=== PATIENT | male | born 1980 | race Two or more races ===

== ENCOUNTER 2019-11-11 11:36 | Inpatient (IN) | payer MEDICAID, SELFPAY ==
[~2019-11-11] VITALS: Ht 175.3 cm; Wt 69.9 kg
[2019-11-11] MEDS ORDERED: NITROGLYCERIN 0.4MG TABLET SL SL ONE (11:45)
[2019-11-11] MEDS ORDERED: NITROGLYCERIN 50MG PREMIX 250 ML IV ONE (11:45)
[2019-11-11 12:26] LABS: BASOPHILS % 1.3 % (0.0-2.0); EOSINOPHILS % 4.3 % (0.0-5.0); HEMATOCRIT. 29.6 % (42.0-52.0); LYMPHOCYTES % 12.4 % (20.0-50.0); MEAN CORPUSCULAR HEMOGLOBIN 34.5 pg (28.0-32.0); MEAN CORPUSCULAR VOLUME 102.3 fL (80.0-94.0); MONOCYTES % 3.9 % (2.0-8.0); NEUTROPHILS % 78.1 % (40.0-76.0); PLATELET 479 x1000/uL (130-400); RED BLOOD CELL COUNT 2.89 mill/uL (4.7-6.1); RED CELL DISTRIBUTION WIDTH 13.9 % (11.6-14.6)
[2019-11-11 12:33] LABS: INR 1.1; PROTHROMBIN TIME 11.4 sec (9.6-11.0)
[2019-11-11 12:35] LABS: CHLORIDE 98 mEq/L (98-107)
[2019-11-11 12:40] LABS: BG BASE EXCESS -13.7 mmol/L (-2.0-2.0); BG BILEVEL POS AIRWAY PRESSURE ST=16/5; BG CARBOXYHEMOGLOBIN 0.3 % (0.5-1.5); BG DEOXYHEMOGLOBIN 1.5 % (0.0-5.0); BG FRACTION INSPIRED OXYGEN 70; BG HCO3 ACT 15.5 mmol/L (22.0-26.0); BG METHEMOGLOBIN 0.3 % (0.0-1.5); BG OXYGEN SATURATION 98.5 % (92.0-98.5); BG OXYHEMOGLOBIN 97.9 % (94.0-97.0); BG PCO2 51.3 mmHg (35.0-45.0); BG PH 7.098 (7.350-7.450); BG SAMPLE SITE RIGHT RADIAL; BG TOTAL HEMOGLOBIN 9.7 g/dL (12.0-18.0); BG VENT MODE MASK - BIPAP; BG VENT RATE 16 set
[2019-11-11] MEDS ORDERED: LIDOCAINE HCL 1% 20ML VIAL (Pyxis) INJ ONE ×2 (12:57→14:02)
[2019-11-11] MEDS ORDERED: DEXTROSE 50% WATER 50ML SYRINGE IV NR (13:00)
[2019-11-11] MEDS ORDERED: AZITHROMYCIN 500 MG in DEXT 5% WATER 250 ML IV SCH (13:00)
[2019-11-11] MEDS ORDERED: SODIUM BICARBONATE 8.4% 1 MEQ/ML 50ML SYR IV NR (13:00)
[2019-11-11] MEDS ORDERED: CALCIUM GLUCONATE 1,000 MG in DEXT 5% WATER 100 ML IV SCH (13:00)
[2019-11-11] MEDS ORDERED: CEFTRIAXONE 1 G PREMIX 50 ML IV SCH (13:00)
[2019-11-11] MEDS ORDERED: INSULIN REGULAR (HUMULIN R) 300UNITS/3ML IV NR (13:00)
[2019-11-11] MEDS ORDERED: MIDAZOLAM HCL 100 MG in DEXT 5% WATER 80 ML IV PRN (13:45)
[2019-11-11] MEDS ORDERED: FENTANYL CITRATE/PF 1,000 MCG in SODIUM CHLORIDE 0.9% 80 ML IV PRN (13:45)
[2019-11-11] MEDS ORDERED: ETOMIDATE 2MG/ML 10ML VIAL IV ONE ×2 (13:50→14:00)
[2019-11-11] MEDS ORDERED: VECURONIUM BROMIDE 10 MG/VIAL IV ONE ×2 (13:50→14:00)
[2019-11-11] MEDS ORDERED: DEXTROSE 50% WATER 50ML SYRINGE IV PRN (14:00)
[2019-11-11] MEDS ORDERED: PROPOFOL 10MG/ML 100ML 100 ML IV ONE (14:00)
[2019-11-11] MEDS ORDERED: SODIUM BICARBONATE 4% (2.4MEQ) 5ML VIAL IV ONE (14:02)
[2019-11-11 14:28] LABS: BG BASE EXCESS -13.1 mmol/L (-2.0-2.0); BG CARBOXYHEMOGLOBIN 0.3 % (0.5-1.5); BG DEOXYHEMOGLOBIN 9.3 % (0.0-5.0); BG FRACTION INSPIRED OXYGEN 60; BG HCO3 ACT 17.4 mmol/L (22.0-26.0); BG METHEMOGLOBIN 0.2 % (0.0-1.5); BG OXYGEN SATURATION 90.7 % (92.0-98.5); BG OXYHEMOGLOBIN 90.2 % (94.0-97.0); BG PCO2 65.2 mmHg (35.0-45.0); BG PH 7.044 (7.350-7.450); BG PO2 88.4 mmHg (75.0-100.0); BG SAMPLE SITE RIGHT RADIAL; BG TIDAL VOLUME(mL) 400 mL; BG TOTAL HEMOGLOBIN 10.1 g/dL (12.0-18.0); BG VENT MODE VENT - A/C; BG VENT RATE 16 set
[2019-11-11] MEDS ORDERED: VANCOMYCIN 2,000 MG in DEXT 5% WATER 500 ML IV SCH (16:00)
[2019-11-11] MEDS: DEXAMETHASONE 10 MG/ML VIAL IV SCH (16:19)
[2019-11-11] MEDS: PIPERACILLIN/TAZOBACTAM 2.25 G in DEXTROSE 5% WATER 50 ML IV SCH ×2 (16:33→23:50)
[2019-11-11] MEDS: BLOOD SUGAR DIAGNOSTIC STRIP TEST SCH ×2 (17:20→21:39)
[2019-11-11] MEDS ORDERED: PIPERACILLIN/TAZOBACTAM 3.375 G in DEXTROSE 5% WATER 50 ML IV SCH (18:00)
[2019-11-11] MEDS: INSULIN LISPRO 100 UNITS/ML SUBCUT SCH ×2 (18:20→21:00)
[2019-11-11] MEDS ORDERED: ENOXAPARIN 80MG/0.8ML SYR SUBCUT SCH (18:30)
[2019-11-11] MEDS ORDERED: HEPARIN 5000 UNITS/ML VIAL SUBCUT SCH (21:00)
[2019-11-12] VITALS (48 sets, daily range): BP systolic 114–186; BP diastolic 48–114
[2019-11-12] MEDS: NITROGLYCERIN 50MG PREMIX 250ML IV PRN ×3 (00:18→22:05)
[2019-11-12] MEDS: PIPERACILLIN/TAZOBACTAM 2.25 G in DEXTROSE 5% WATER 50 ML IV SCH ×3 (06:00→22:05)
[2019-11-12 06:25] LABS: HEMATOCRIT. 22.4 % (42.0-52.0); HEMOGLOBIN. 7.5 g/dL (14.0-18.0); MEAN CORPUSCULAR HEMOGLOBIN 33.5 pg (28.0-32.0); MEAN CORPUSCULAR VOLUME 100.5 fL (80.0-94.0); PLATELET 304 x1000/uL (130-400); RED BLOOD CELL COUNT 2.23 mill/uL (4.7-6.1); RED CELL DISTRIBUTION WIDTH 13.5 % (11.6-14.6)
[2019-11-12 06:29] LABS: CHLORIDE 95 mEq/L (98-107)
[2019-11-12] MEDS: BLOOD SUGAR DIAGNOSTIC STRIP TEST SCH ×5 (06:30→23:30)
[2019-11-12] MEDS ORDERED: SODIUM BICARBONATE 8.4% 1 MEQ/ML 50ML SYR IV STA (06:56)
[2019-11-12] MEDS ORDERED: SODIUM POLYSTYRENE SULFONATE 15 G/60 ML BOT PO STA (06:56)
[2019-11-12] MEDS ORDERED: INSULIN REGULAR (HUMULIN R) 300UNITS/3ML IV STA (06:56)
[2019-11-12] MEDS ORDERED: DEXTROSE 50% WATER 50ML SYRINGE IV STA (06:56)
[2019-11-12] MEDS: INSULIN LISPRO 100 UNITS/ML SUBCUT SCH ×4 (07:00→17:17)
[2019-11-12 07:11] LABS: PLATELET ESTIMATE NORMAL
[2019-11-12] MEDS ORDERED: CALCIUM GLUCONATE 1,000 MG in DEXT 5% WATER 90 ML IV SCH (08:00)
[2019-11-12] MEDS ORDERED: SODIUM BICARBONATE 8.4% 1 MEQ/ML 50ML SYR IV NR (08:45)
[2019-11-12 08:47] LABS: BG BASE EXCESS -9.6 mmol/L (-2.0-2.0); BG CARBOXYHEMOGLOBIN 0.3 % (0.5-1.5); BG DEOXYHEMOGLOBIN 0.6 % (0.0-5.0); BG FRACTION INSPIRED OXYGEN 80; BG HCO3 ACT 17.2 mmol/L (22.0-26.0); BG METHEMOGLOBIN 0.3 % (0.0-1.5); BG OXYGEN SATURATION 99.4 % (92.0-98.5); BG OXYHEMOGLOBIN 98.8 % (94.0-97.0); BG PCO2 42.1 mmHg (35.0-45.0); BG PH 7.229 (7.350-7.450); BG PO2 299.2 mmHg (75.0-100.0); BG SAMPLE SITE RIGHT RADIAL; BG TIDAL VOLUME(mL) 500 mL; BG TOTAL HEMOGLOBIN 7.5 g/dL (12.0-18.0); BG VENT MODE VENT- PRVC; BG VENT RATE 20 set
[2019-11-12] MEDS: IPRATROPIUM/ALBUTEROL 0.5-3(2.5)MG/3ML NEB HHN SCH ×3 (09:00→20:20)
[2019-11-12] MEDS: DEXAMETHASONE 10 MG/ML VIAL IV SCH (09:00)
[2019-11-12] MEDS ORDERED: ENOXAPARIN 30MG/0.3ML SYR SUBCUT SCH (12:30)
[2019-11-12] MEDS: MIDAZOLAM HCL 100 MG in DEXT 5% WATER 80 ML IV PRN (14:27)
[2019-11-12] MEDS: FENTANYL CITRATE/PF 1,000 MCG in SODIUM CHLORIDE 0.9% 80 ML IV PRN (14:28)
[2019-11-12 16:24] LABS: BG BASE EXCESS -1.2 mmol/L (-2.0-2.0); BG CARBOXYHEMOGLOBIN 0.3 % (0.5-1.5); BG HCO3 ACT 23.6 mmol/L (22.0-26.0); BG OXYHEMOGLOBIN 98.7 % (94.0-97.0); BG PCO2 39.4 mmHg (35.0-45.0); BG PH 7.395 (7.350-7.450); BG PO2 230.4 mmHg (75.0-100.0); BG SAMPLE SITE RIGHT BRACHIAL; BG TIDAL VOLUME(mL) 500 mL; BG TOTAL HEMOGLOBIN 8.7 g/dL (12.0-18.0); BG VENT MODE VENT - A/C; BG VENT RATE 22 set
[2019-11-12] MEDS: IPRATROPIUM/ALBUTEROL 0.5-3(2.5)MG/3ML NEB HHN PRN (18:32)
[2019-11-12 21:04] LABS: FOLIC ACID (FOLATE) SERUM 6.6 ng/mL (>5.38)
[2019-11-13] VITALS (85 sets, daily range): BP systolic 104–193; BP diastolic 53–143
[2019-11-13] MEDS: IPRATROPIUM/ALBUTEROL 0.5-3(2.5)MG/3ML NEB HHN SCH ×4 (00:40→22:12)
[2019-11-13] MEDS: FENTANYL CITRATE/PF 1,000 MCG in SODIUM CHLORIDE 0.9% 80 ML IV PRN ×3 (02:59→22:24)
[2019-11-13 05:44] LABS: CHLORIDE 94 mEq/L (98-107)
[2019-11-13 06:08] LABS: HEMATOCRIT. 21.2 % (42.0-52.0); HEMOGLOBIN. 7.4 g/dL (14.0-18.0); MEAN CORPUSCULAR HEMOGLOBIN 34.6 pg (28.0-32.0); MEAN CORPUSCULAR VOLUME 98.9 fL (80.0-94.0); MEAN PLATELET VOLUME 8.7 fl (7.4-10.4); PLATELET 291 x1000/uL (130-400); RED BLOOD CELL COUNT 2.15 mill/uL (4.7-6.1); RED CELL DISTRIBUTION WIDTH 13.4 % (11.6-14.6)
[2019-11-13] MEDS: PIPERACILLIN/TAZOBACTAM 2.25 G in DEXTROSE 5% WATER 50 ML IV SCH ×3 (06:08→21:17)
[2019-11-13] MEDS: BLOOD SUGAR DIAGNOSTIC STRIP TEST SCH ×3 (06:08→17:32)
[2019-11-13] MEDS: INSULIN LISPRO 100 UNITS/ML SUBCUT SCH ×4 (06:09→18:57)
[2019-11-13 06:13] LABS: PHOSPHORUS 11.5 mg/dL (2.5-4.9)
[2019-11-13] MEDS: DEXAMETHASONE 4MG TABLET PO SCH (08:48)
[2019-11-13] MEDS: LANTHANUM CARBONATE 500MG CHEW TABLET PO SCH ×3 (08:48→17:33)
[2019-11-13] MEDS: MIDAZOLAM HCL 100 MG in DEXT 5% WATER 80 ML IV PRN ×2 (08:49→21:10)
[2019-11-13 09:58] LABS: PLATELET ESTIMATE NORMAL
[2019-11-13 10:04] LABS: BG BASE EXCESS 4.6 mmol/L (-2.0-2.0); BG CARBOXYHEMOGLOBIN 0.3 % (0.5-1.5); BG DEOXYHEMOGLOBIN 2.6 % (0.0-5.0); BG FRACTION INSPIRED OXYGEN 35; BG HCO3 ACT 28.1 mmol/L (22.0-26.0); BG METHEMOGLOBIN 0.4 % (0.0-1.5); BG OXYGEN SATURATION 97.4 % (92.0-98.5); BG OXYHEMOGLOBIN 96.7 % (94.0-97.0); BG PCO2 35.9 mmHg (35.0-45.0); BG PH 7.511 (7.350-7.450); BG PO2 111.7 mmHg (75.0-100.0); BG SAMPLE SITE RIGHT RADIAL; BG TIDAL VOLUME(mL) 500 mL; BG TOTAL HEMOGLOBIN 5.7 g/dL (12.0-18.0); BG VENT MODE VENT - A/C; BG VENT RATE 22 set
[2019-11-13] MEDS: DOXAZOSIN MESYLATE 2MG TABLET PO SCH ×2 (12:14→17:34)
[2019-11-13] MEDS: AMLODIPINE 10MG TABLET PO SCH (12:15)
[2019-11-13] MEDS: HYDRALAZINE HCL 50MG TABLET PO SCH ×2 (13:38→21:17)
[2019-11-13] MEDS: PANTOPRAZOLE SODIUM 40 MG/VIAL IV SCH ×2 (13:38→21:30)
[2019-11-13] MEDS ORDERED: LORAZEPAM 2MG/ML CPJ IV SCH (16:30)
[2019-11-13] MEDS ORDERED: METOPROLOL TARTRATE 25MG TABLET PO SCH (17:30)
[2019-11-13] MEDS: METOPROLOL TARTRATE 25MG TABLET PO SCH (21:17)
[2019-11-13] MEDS: NITROGLYCERIN 50MG PREMIX 250ML IV PRN (23:33)
[2019-11-14] VITALS (73 sets, daily range): BP systolic 92–210; BP diastolic 56–139
[2019-11-14] MEDS: INSULIN LISPRO 100 UNITS/ML SUBCUT SCH ×4 (00:20→17:30)
[2019-11-14] MEDS: BLOOD SUGAR DIAGNOSTIC STRIP TEST SCH ×4 (00:23→17:29)
[2019-11-14] MEDS: IPRATROPIUM/ALBUTEROL 0.5-3(2.5)MG/3ML NEB HHN SCH ×3 (03:54→20:56)
[2019-11-14] MEDS: PIPERACILLIN/TAZOBACTAM 2.25 G in DEXTROSE 5% WATER 50 ML IV SCH ×3 (05:51→21:09)
[2019-11-14] MEDS: HYDRALAZINE HCL 50MG TABLET PO SCH ×2 (05:54→13:19)
[2019-11-14 05:59] LABS: HEMATOCRIT. 23.7 % (42.0-52.0); HEMOGLOBIN. 8.2 g/dL (14.0-18.0); MEAN CORPUSCULAR HEMOGLOBIN 34.2 pg (28.0-32.0); MEAN CORPUSCULAR VOLUME 99.5 fL (80.0-94.0); MEAN PLATELET VOLUME 8.7 fl (7.4-10.4); PLATELET 329 x1000/uL (130-400); RED BLOOD CELL COUNT 2.39 mill/uL (4.7-6.1); RED CELL DISTRIBUTION WIDTH 13.4 % (11.6-14.6)
[2019-11-14 06:14] LABS: CHLORIDE 95 mEq/L (98-107)
[2019-11-14] MEDS: DEXAMETHASONE 4MG TABLET PO SCH (08:40)
[2019-11-14] MEDS: AMLODIPINE 10MG TABLET PO SCH (08:40)
[2019-11-14] MEDS: DOXAZOSIN MESYLATE 2MG TABLET PO SCH ×2 (08:41→17:45)
[2019-11-14] MEDS: LANTHANUM CARBONATE 500MG CHEW TABLET PO SCH ×3 (08:41→17:45)
[2019-11-14] MEDS: METOPROLOL TARTRATE 25MG TABLET PO SCH ×2 (08:41→21:08)
[2019-11-14] MEDS: FENTANYL CITRATE/PF 1,000 MCG in SODIUM CHLORIDE 0.9% 80 ML IV PRN ×2 (08:46→17:42)
[2019-11-14] MEDS: MIDAZOLAM HCL 100 MG in DEXT 5% WATER 80 ML IV PRN ×2 (08:47→17:38)
[2019-11-14] MEDS: PANTOPRAZOLE SODIUM 40 MG/VIAL IV SCH ×2 (08:50→21:09)
[2019-11-14 10:27] LABS: PLATELET ESTIMATE NORMAL
[2019-11-14 10:43] LABS: BG BASE EXCESS -1.2 mmol/L (-2.0-2.0); BG CARBOXYHEMOGLOBIN 0.3 % (0.5-1.5); BG DEOXYHEMOGLOBIN 2.2 % (0.0-5.0); BG FRACTION INSPIRED OXYGEN 35; BG METHEMOGLOBIN 0.1 % (0.0-1.5); BG OXYGEN SATURATION 97.8 % (92.0-98.5); BG OXYHEMOGLOBIN 97.4 % (94.0-97.0); BG PCO2 48.9 mmHg (35.0-45.0); BG PH 7.327 (7.350-7.450); BG PO2 133.3 mmHg (75.0-100.0); BG SAMPLE SITE RIGHT RADIAL; BG TIDAL VOLUME(mL) 500 mL; BG TOTAL HEMOGLOBIN 9.8 g/dL (12.0-18.0); BG VENT MODE VENT - A/C; BG VENT RATE 18 set
[2019-11-14] MEDS: HYDRALAZINE HCL 25MG TABLET NG SCH ×2 (14:00→21:09)
[2019-11-14] MEDS ORDERED: HYDRALAZINE HCL 25MG TABLET NG SCH (14:15)
[2019-11-14] MEDS: NITROGLYCERIN 50MG PREMIX 250ML IV PRN (18:13)
[2019-11-15] VITALS (91 sets, daily range): BP systolic 121–177; BP diastolic 54–113
[2019-11-15] MEDS: INSULIN LISPRO 100 UNITS/ML SUBCUT SCH ×5 (00:20→23:27)
[2019-11-15] MEDS: BLOOD SUGAR DIAGNOSTIC STRIP TEST SCH ×5 (00:25→23:27)
[2019-11-15] MEDS: MIDAZOLAM HCL 100 MG in DEXT 5% WATER 80 ML IV PRN ×3 (03:47→21:47)
[2019-11-15] MEDS: FENTANYL CITRATE/PF 1,000 MCG in SODIUM CHLORIDE 0.9% 80 ML IV PRN ×3 (04:13→21:46)
[2019-11-15] MEDS: IPRATROPIUM/ALBUTEROL 0.5-3(2.5)MG/3ML NEB HHN SCH ×4 (04:29→21:38)
[2019-11-15] MEDS: PIPERACILLIN/TAZOBACTAM 2.25 G in DEXTROSE 5% WATER 50 ML IV SCH ×3 (05:44→21:10)
[2019-11-15] MEDS: HYDRALAZINE HCL 25MG TABLET NG SCH ×3 (05:45→21:10)
[2019-11-15 06:30] LABS: HEMATOCRIT. 22.9 % (42.0-52.0); HEMOGLOBIN. 7.9 g/dL (14.0-18.0); MEAN CORPUSCULAR HEMOGLOBIN 34.4 pg (28.0-32.0); MEAN CORPUSCULAR VOLUME 100.3 fL (80.0-94.0); MEAN PLATELET VOLUME 8.6 fl (7.4-10.4); PLATELET 324 x1000/uL (130-400); RED BLOOD CELL COUNT 2.29 mill/uL (4.7-6.1); RED CELL DISTRIBUTION WIDTH 13.8 % (11.6-14.6)
[2019-11-15 07:05] LABS: CHLORIDE 95 mEq/L (98-107)
[2019-11-15] MEDS: PANTOPRAZOLE SODIUM 40 MG/VIAL IV SCH ×2 (09:06→20:04)
[2019-11-15] MEDS: AMLODIPINE 10MG TABLET PO SCH (09:07)
[2019-11-15] MEDS: LANTHANUM CARBONATE 500MG CHEW TABLET PO SCH ×3 (09:07→17:53)
[2019-11-15] MEDS: DOXAZOSIN MESYLATE 2MG TABLET PO SCH ×2 (09:07→17:00)
[2019-11-15] MEDS: METOPROLOL TARTRATE 25MG TABLET PO SCH ×2 (09:09→20:04)
[2019-11-15 10:26] LABS: BG BASE EXCESS -0.7 mmol/L (-2.0-2.0); BG CARBOXYHEMOGLOBIN 0.3 % (0.5-1.5); BG DEOXYHEMOGLOBIN 3.4 % (0.0-5.0); BG FRACTION INSPIRED OXYGEN 35; BG METHEMOGLOBIN 0.3 % (0.0-1.5); BG OXYGEN SATURATION 96.6 % (92.0-98.5); BG PCO2 39.4 mmHg (35.0-45.0); BG PH 7.402 (7.350-7.450); BG PO2 96.2 mmHg (75.0-100.0); BG SAMPLE SITE RIGHT RADIAL; BG TIDAL VOLUME(mL) 500 mL; BG TOTAL HEMOGLOBIN 9.3 g/dL (12.0-18.0); BG VENT MODE VENT - A/C; BG VENT RATE 18 set
[2019-11-15] MEDS ORDERED: VANCOMYCIN 1 G PREMIX 200 ML IV NR (12:00)
[2019-11-15] MEDS: NITROGLYCERIN 50MG PREMIX 250ML IV PRN (12:49)
[2019-11-15] MEDS: IPRATROPIUM/ALBUTEROL 0.5-3(2.5)MG/3ML NEB HHN PRN (12:50)
[2019-11-15] MEDS: QUETIAPINE FUMARATE 25MG TABLET PO SCH (20:05)
[2019-11-15 21:28] LABS: PLATELET ESTIMATE NORMAL
[2019-11-16] VITALS (95 sets, daily range): BP systolic 125–194; BP diastolic 72–122
[2019-11-16] MEDS: IPRATROPIUM/ALBUTEROL 0.5-3(2.5)MG/3ML NEB HHN SCH ×3 (01:34→13:40)
[2019-11-16] MEDS: PIPERACILLIN/TAZOBACTAM 2.25 G in DEXTROSE 5% WATER 50 ML IV SCH ×3 (05:09→20:50)
[2019-11-16] MEDS: HYDRALAZINE HCL 25MG TABLET NG SCH (05:09)
[2019-11-16] MEDS: BLOOD SUGAR DIAGNOSTIC STRIP TEST SCH ×4 (05:10→23:54)
[2019-11-16] MEDS: INSULIN LISPRO 100 UNITS/ML SUBCUT SCH ×4 (05:22→23:54)
[2019-11-16] MEDS: FENTANYL CITRATE/PF 1,000 MCG in SODIUM CHLORIDE 0.9% 80 ML IV PRN ×2 (06:18→14:38)
[2019-11-16 08:11] LABS: BASOPHILS % 0.5 % (0.0-2.0); EOSINOPHILS % 1.9 % (0.0-5.0); HEMATOCRIT. 27.9 % (42.0-52.0); HEMOGLOBIN. 9.3 g/dL (14.0-18.0); LYMPHOCYTES % 10.5 % (20.0-50.0); MEAN CORPUSCULAR HEMOGLOBIN 33.7 pg (28.0-32.0); MEAN CORPUSCULAR VOLUME 101.1 fL (80.0-94.0); MEAN PLATELET VOLUME 8.6 fl (7.4-10.4); MONOCYTES % 9.5 % (2.0-8.0); NEUTROPHILS % 77.6 % (40.0-76.0); PLATELET 376 x1000/uL (130-400); RED BLOOD CELL COUNT 2.76 mill/uL (4.7-6.1); RED CELL DISTRIBUTION WIDTH 13.6 % (11.6-14.6)
[2019-11-16 08:22] LABS: CHLORIDE 99 mEq/L (98-107)
[2019-11-16] MEDS: QUETIAPINE FUMARATE 25MG TABLET PO SCH ×2 (09:01→20:50)
[2019-11-16] MEDS: PANTOPRAZOLE SODIUM 40 MG/VIAL IV SCH ×2 (09:01→20:51)
[2019-11-16] MEDS: AMLODIPINE 10MG TABLET PO SCH (09:01)
[2019-11-16] MEDS: METOPROLOL TARTRATE 25MG TABLET PO SCH (09:01)
[2019-11-16] MEDS: DOXAZOSIN MESYLATE 2MG TABLET PO SCH ×2 (09:01→16:16)
[2019-11-16] MEDS: LANTHANUM CARBONATE 500MG CHEW TABLET PO SCH ×3 (09:02→17:10)
[2019-11-16] MEDS: MIDAZOLAM HCL 100 MG in DEXT 5% WATER 80 ML IV PRN ×2 (09:37→20:54)
[2019-11-16 09:55] LABS: BG BASE EXCESS -1.7 mmol/L (-2.0-2.0); BG CARBOXYHEMOGLOBIN 0.3 % (0.5-1.5); BG DEOXYHEMOGLOBIN 2.5 % (0.0-5.0); BG FRACTION INSPIRED OXYGEN 35; BG HCO3 ACT 22.9 mmol/L (22.0-26.0); BG METHEMOGLOBIN 0.3 % (0.0-1.5); BG OXYGEN SATURATION 97.5 % (92.0-98.5); BG OXYHEMOGLOBIN 96.9 % (94.0-97.0); BG PCO2 37.9 mmHg (35.0-45.0); BG PH 7.399 (7.350-7.450); BG PO2 114.2 mmHg (75.0-100.0); BG SAMPLE SITE RIGHT RADIAL; BG TIDAL VOLUME(mL) 500 mL; BG TOTAL HEMOGLOBIN 9.7 g/dL (12.0-18.0); BG VENT MODE VENT - A/C; BG VENT RATE 18 set
[2019-11-16] MEDS ORDERED: METOPROLOL TARTRATE 50MG TABLET NG NR (11:30)
[2019-11-16] MEDS: HYDRALAZINE HCL 100MG TABLET NG SCH ×3 (14:32→20:50)
[2019-11-16] MEDS: METOPROLOL TARTRATE 50MG TABLET PO SCH ×2 (20:07→20:50)
[2019-11-17] VITALS (96 sets, daily range): BP systolic 104–180; BP diastolic 48–111
[2019-11-17] MEDS: FENTANYL CITRATE/PF 1,000 MCG in SODIUM CHLORIDE 0.9% 80 ML IV PRN ×3 (00:50→16:14)
[2019-11-17 05:38] LABS: HEMATOCRIT 28.2 % (42.0-52.0); HEMOGLOBIN 9.6 g/dL (14.0-18.0); MEAN CORPUSCULAR HEMOGLOBIN 34.1 pg (28.0-32.0); MEAN CORPUSCULAR VOLUME 99.9 fL (80.0-94.0); PLATELET 427 x1000/uL (130-400); RED BLOOD CELL COUNT 2.82 mill/uL (4.7-6.1); RED CELL DISTRIBUTION WIDTH 13.5 % (11.6-14.6)
[2019-11-17] MEDS: HYDRALAZINE HCL 100MG TABLET NG SCH ×3 (06:04→20:58)
[2019-11-17] MEDS: MIDAZOLAM HCL 100 MG in DEXT 5% WATER 80 ML IV PRN ×2 (06:04→16:15)
[2019-11-17] MEDS: INSULIN LISPRO 100 UNITS/ML SUBCUT SCH ×3 (06:04→18:07)
[2019-11-17] MEDS: BLOOD SUGAR DIAGNOSTIC STRIP TEST SCH ×3 (06:04→18:07)
[2019-11-17] MEDS: IPRATROPIUM/ALBUTEROL 0.5-3(2.5)MG/3ML NEB HHN SCH ×3 (07:55→20:06)
[2019-11-17] MEDS: PANTOPRAZOLE SODIUM 40 MG/VIAL IV SCH ×2 (08:31→21:16)
[2019-11-17] MEDS: QUETIAPINE FUMARATE 25MG TABLET PO SCH ×2 (08:31→20:58)
[2019-11-17] MEDS: METOPROLOL TARTRATE 50MG TABLET PO SCH ×2 (08:31→20:58)
[2019-11-17] MEDS: AMLODIPINE 10MG TABLET PO SCH (08:32)
[2019-11-17] MEDS: LANTHANUM CARBONATE 500MG CHEW TABLET PO SCH ×3 (08:51→18:07)
[2019-11-17] MEDS: DOXAZOSIN MESYLATE 2MG TABLET PO SCH ×2 (08:51→16:11)
[2019-11-17 10:59] LABS: BG BASE EXCESS -3.7 mmol/L (-2.0-2.0); BG CARBOXYHEMOGLOBIN 0.3 % (0.5-1.5); BG DEOXYHEMOGLOBIN 3.4 % (0.0-5.0); BG FRACTION INSPIRED OXYGEN 35; BG HCO3 ACT 20.8 mmol/L (22.0-26.0); BG METHEMOGLOBIN 0.3 % (0.0-1.5); BG OXYGEN SATURATION 96.6 % (92.0-98.5); BG PCO2 35.2 mmHg (35.0-45.0); BG SAMPLE SITE RIGHT RADIAL; BG TIDAL VOLUME(mL) 500 mL; BG TOTAL HEMOGLOBIN 8.6 g/dL (12.0-18.0); BG VENT MODE VENT - A/C; BG VENT RATE 18 set
[2019-11-17] MEDS: ENOXAPARIN 30MG/0.3ML SYR SUBCUT SCH (16:10)
[2019-11-17] MEDS: PIPERACILLIN/TAZOBACTAM 2.25 G in DEXTROSE 5% WATER 50 ML IV SCH (16:11)
[2019-11-17] MEDS ORDERED: PIPERACILLIN/TAZOBACTAM 3.375 G/VIAL IV SCH (22:00)
[2019-11-17] MEDS: ACETAMINOPHEN 325MG TABLET PO PRN (22:30)
[2019-11-18] VITALS (99 sets, daily range): BP systolic 90–222; BP diastolic 42–123
[2019-11-18] MEDS: INSULIN LISPRO 100 UNITS/ML SUBCUT SCH ×4 (00:20→17:58)
[2019-11-18] MEDS: PIPERACILLIN/TAZOBACTAM 2.25 G in DEXTROSE 5% WATER 50 ML IV SCH ×3 (00:26→16:34)
[2019-11-18] MEDS: BLOOD SUGAR DIAGNOSTIC STRIP TEST SCH ×4 (00:27→16:35)
[2019-11-18] MEDS: MIDAZOLAM HCL 100 MG in DEXT 5% WATER 80 ML IV PRN (03:08)
[2019-11-18] MEDS: IPRATROPIUM/ALBUTEROL 0.5-3(2.5)MG/3ML NEB HHN SCH ×4 (04:06→20:09)
[2019-11-18 05:10] LABS: HEMOGLOBIN 8.5 g/dL (14.0-18.0); MEAN CORPUSCULAR VOLUME 100.3 fL (80.0-94.0); PLATELET 393 x1000/uL (130-400); RED CELL DISTRIBUTION WIDTH 13.6 % (11.6-14.6)
[2019-11-18] MEDS: FENTANYL CITRATE/PF 1,000 MCG in SODIUM CHLORIDE 0.9% 80 ML IV PRN (05:14)
[2019-11-18] MEDS: HYDRALAZINE HCL 100MG TABLET NG SCH ×3 (06:00→22:00)
[2019-11-18 08:35] LABS: BG BASE EXCESS -0.5 mmol/L (-2.0-2.0); BG DEOXYHEMOGLOBIN 3.1 % (0.0-5.0); BG FRACTION INSPIRED OXYGEN 35; BG HCO3 ACT 24.1 mmol/L (22.0-26.0); BG METHEMOGLOBIN 0.5 % (0.0-1.5); BG OXYGEN SATURATION 96.9 % (92.0-98.5); BG OXYHEMOGLOBIN 96.4 % (94.0-97.0); BG PCO2 39.3 mmHg (35.0-45.0); BG PH 7.406 (7.350-7.450); BG PO2 98.8 mmHg (75.0-100.0); BG SAMPLE SITE RIGHT RADIAL; BG TIDAL VOLUME(mL) 500 mL; BG TOTAL HEMOGLOBIN 8.8 g/dL (12.0-18.0); BG VENT MODE VENT - A/C; BG VENT RATE 14 set
[2019-11-18] MEDS: PANTOPRAZOLE SODIUM 40 MG/VIAL IV SCH ×2 (09:12→20:50)
[2019-11-18] MEDS: DOXAZOSIN MESYLATE 2MG TABLET PO SCH ×2 (09:12→16:34)
[2019-11-18] MEDS: LANTHANUM CARBONATE 500MG CHEW TABLET PO SCH ×3 (09:12→17:57)
[2019-11-18] MEDS: ENOXAPARIN 30MG/0.3ML SYR SUBCUT SCH (09:13)
[2019-11-18] MEDS: QUETIAPINE FUMARATE 25MG TABLET PO SCH (09:13)
[2019-11-18] MEDS: AMLODIPINE 10MG TABLET PO SCH (09:13)
[2019-11-18] MEDS: METOPROLOL TARTRATE 50MG TABLET PO SCH ×2 (09:29→21:00)
[2019-11-18] MEDS ORDERED: LORAZEPAM 2MG/ML CPJ IV PRN (10:45)
[2019-11-18] MEDS ORDERED: VANCOMYCIN 1 G PREMIX 200 ML IV NR (12:30)
[2019-11-18] MEDS ORDERED: DOXYCYCLINE HYCLATE 100MG CAPSULE PO SCH (21:00)
[2019-11-18] MEDS: METOPROLOL TARTRATE 5MG/5ML VIAL IV SCH (22:02)
[2019-11-19] VITALS (92 sets, daily range): BP systolic 115–195; BP diastolic 55–110
[2019-11-19] MEDS: INSULIN LISPRO 100 UNITS/ML SUBCUT SCH ×4 (00:20→18:20)
[2019-11-19] MEDS: BLOOD SUGAR DIAGNOSTIC STRIP TEST SCH ×5 (00:22→23:30)
[2019-11-19] MEDS: PIPERACILLIN/TAZOBACTAM 2.25 G in DEXTROSE 5% WATER 50 ML IV SCH ×3 (00:43→17:07)
[2019-11-19] MEDS: METOPROLOL TARTRATE 5MG/5ML VIAL IV SCH ×5 (00:52→23:43)
[2019-11-19] MEDS: ACETAMINOPHEN 325MG TABLET PO PRN (00:53)
[2019-11-19] MEDS ORDERED: MIDAZOLAM HCL 100 MG in DEXT 5% WATER 80 ML IV PRN (01:30)
[2019-11-19] MEDS ORDERED: FENTANYL CITRATE/PF 1,000 MCG in SODIUM CHLORIDE 0.9% 80 ML IV PRN (01:30)
[2019-11-19] MEDS: IPRATROPIUM/ALBUTEROL 0.5-3(2.5)MG/3ML NEB HHN SCH ×4 (02:08→22:48)
[2019-11-19] MEDS: HYDRALAZINE HCL 100MG TABLET NG SCH ×3 (06:00→21:34)
[2019-11-19 06:35] LABS: HEMATOCRIT. 23.8 % (42.0-52.0); MEAN CORPUSCULAR HEMOGLOBIN 33.7 pg (28.0-32.0); MEAN CORPUSCULAR VOLUME 100.2 fL (80.0-94.0); MEAN PLATELET VOLUME 8.5 fl (7.4-10.4); PLATELET 401 x1000/uL (130-400); RED BLOOD CELL COUNT 2.37 mill/uL (4.7-6.1); RED CELL DISTRIBUTION WIDTH 13.7 % (11.6-14.6)
[2019-11-19] MEDS: LANTHANUM CARBONATE 500MG CHEW TABLET PO SCH ×3 (09:24→17:51)
[2019-11-19] MEDS: PANTOPRAZOLE SODIUM 40 MG/VIAL IV SCH ×2 (09:24→21:34)
[2019-11-19] MEDS: ENOXAPARIN 30MG/0.3ML SYR SUBCUT SCH (09:24)
[2019-11-19] MEDS: METOPROLOL TARTRATE 50MG TABLET PO SCH ×3 (09:25→10:26)
[2019-11-19] MEDS: DOXAZOSIN MESYLATE 2MG TABLET PO SCH ×2 (09:25→17:07)
[2019-11-19] MEDS: AMLODIPINE 10MG TABLET PO SCH (09:25)
[2019-11-19] MEDS: DOXYCYCLINE 100 MG in DEXT 5% WATER 100 ML IV SCH ×2 (09:30→21:34)
[2019-11-19 11:15] LABS: BG BASE EXCESS -1.4 mmol/L (-2.0-2.0); BG CARBOXYHEMOGLOBIN 0.3 % (0.5-1.5); BG DEOXYHEMOGLOBIN 1.9 % (0.0-5.0); BG FRACTION INSPIRED OXYGEN 35; BG HCO3 ACT 23.5 mmol/L (22.0-26.0); BG METHEMOGLOBIN 0.3 % (0.0-1.5); BG OXYGEN SATURATION 98.1 % (92.0-98.5); BG OXYHEMOGLOBIN 97.5 % (94.0-97.0); BG PH 7.387 (7.350-7.450); BG PO2 136.4 mmHg (75.0-100.0); BG PRESSURE SUPPORT 8; BG SAMPLE SITE RIGHT BRACHIAL; BG TOTAL HEMOGLOBIN 9.4 g/dL (12.0-18.0); BG VENT MODE VENT - CPAP
[2019-11-19 12:11] LABS: HEPATITIS B SURFACE ANTIGEN NEGATIVE
[2019-11-19 12:41] LABS: HEPATITIS A AB IGM NEGATIVE (NEGATIVE)
[2019-11-19 15:09] LABS: PLATELET ESTIMATE SLIGHTLY INCREASED
[2019-11-19 17:10] LABS: BG CARBOXYHEMOGLOBIN 0.3 % (0.5-1.5); BG DEOXYHEMOGLOBIN 3.9 % (0.0-5.0); BG HCO3 ACT 24.4 mmol/L (22.0-26.0); BG METHEMOGLOBIN 0.4 % (0.0-1.5); BG OXYGEN SATURATION 96.1 % (92.0-98.5); BG OXYHEMOGLOBIN 95.4 % (94.0-97.0); BG PCO2 34.3 mmHg (35.0-45.0); BG PO2 87.1 mmHg (75.0-100.0); BG SAMPLE SITE RIGHT BRACHIAL; BG TOTAL HEMOGLOBIN 9.7 g/dL (12.0-18.0); BG VENT MODE MASK - AEROSOL
[2019-11-19] MEDS: MORPHINE SULFATE 2 MG/ML CPJ (NOT FOR IM USE) IV PRN ×2 (19:38→23:44)
[2019-11-19] MEDS ORDERED: LORAZEPAM 2MG/ML CPJ IM PRN (20:45)
[2019-11-19] MEDS: TRAZODONE HCL 50MG TABLET PO PRN (23:44)
[2019-11-20] VITALS (82 sets, daily range): BP systolic 110–205; BP diastolic 43–115
[2019-11-20] MEDS: ONDANSETRON HCL 4MG/2ML INJ IV PRN ×2 (00:05→23:05)
[2019-11-20] MEDS: PIPERACILLIN/TAZOBACTAM 2.25 G in DEXTROSE 5% WATER 50 ML IV SCH ×3 (00:05→16:03)
[2019-11-20] MEDS: INSULIN LISPRO 100 UNITS/ML SUBCUT SCH ×3 (00:16→12:20)
[2019-11-20] MEDS: NITROGLYCERIN 50MG PREMIX 250ML IV PRN ×2 (01:45→14:31)
[2019-11-20] MEDS: HYDRALAZINE HCL 100MG TABLET NG SCH ×3 (05:11→21:54)
[2019-11-20] MEDS: MORPHINE SULFATE 2 MG/ML CPJ (NOT FOR IM USE) IV PRN ×2 (05:12→23:06)
[2019-11-20] MEDS: METOPROLOL TARTRATE 5MG/5ML VIAL IV SCH ×2 (05:14→10:25)
[2019-11-20] MEDS: BLOOD SUGAR DIAGNOSTIC STRIP TEST SCH ×4 (05:46→23:19)
[2019-11-20 07:12] LABS: VITAMIN B12 SERUM 1848 pg/mL (211-911)
[2019-11-20 07:26] LABS: HEMATOCRIT. 22.8 % (42.0-52.0); HEMOGLOBIN. 7.7 g/dL (14.0-18.0); MEAN CORPUSCULAR HEMOGLOBIN 33.6 pg (28.0-32.0); MEAN CORPUSCULAR VOLUME 99.9 fL (80.0-94.0); MEAN PLATELET VOLUME 8.5 fl (7.4-10.4); PLATELET 421 x1000/uL (130-400); RED BLOOD CELL COUNT 2.28 mill/uL (4.7-6.1); RED CELL DISTRIBUTION WIDTH 13.4 % (11.6-14.6)
[2019-11-20] MEDS: IPRATROPIUM/ALBUTEROL 0.5-3(2.5)MG/3ML NEB HHN SCH ×3 (08:54→22:37)
[2019-11-20] MEDS: AMLODIPINE 10MG TABLET PO SCH (09:44)
[2019-11-20] MEDS: DOXAZOSIN MESYLATE 2MG TABLET PO SCH ×2 (09:44→17:57)
[2019-11-20] MEDS: LANTHANUM CARBONATE 500MG CHEW TABLET PO SCH ×2 (09:44→13:32)
[2019-11-20] MEDS: DOXYCYCLINE 100 MG in DEXT 5% WATER 100 ML IV SCH ×2 (09:44→21:15)
[2019-11-20] MEDS: METOPROLOL TARTRATE 50MG TABLET PO SCH ×2 (09:46→21:04)
[2019-11-20] MEDS: ENOXAPARIN 30MG/0.3ML SYR SUBCUT SCH (09:47)
[2019-11-20] MEDS: PANTOPRAZOLE SODIUM 40 MG/VIAL IV SCH ×2 (12:05→21:04)
[2019-11-20] MEDS ORDERED: METOPROLOL TARTRATE 5MG/5ML VIAL IV PRN (12:15)
[2019-11-20] MEDS: ISOSORBIDE MONONITRATE 30MG TABLET SR 24HR PO SCH (12:30)
[2019-11-20 15:11] LABS: PLATELET ESTIMATE INCREASED
[2019-11-20] MEDS: LORAZEPAM 2MG/ML CPJ IV PRN ×3 (15:56→21:59)
[2019-11-20] MEDS: LACTOBACILLUS GG CAPSULE PO SCH (17:56)
[2019-11-20] MEDS: TRAZODONE HCL 50MG TABLET PO PRN (20:31)
[2019-11-20] MEDS: CEFEPIME 1,000 MG in DEXTROSE 5% WATER 50 ML IV SCH (20:32)
[2019-11-21] VITALS (60 sets, daily range): BP systolic 98–184; BP diastolic 46–103
[2019-11-21] MEDS: MORPHINE SULFATE 2 MG/ML CPJ (NOT FOR IM USE) IV PRN (02:16)
[2019-11-21] MEDS: LORAZEPAM 2MG/ML CPJ IV PRN (03:47)
[2019-11-21] MEDS: HYDRALAZINE HCL 100MG TABLET NG SCH ×3 (05:16→22:14)
[2019-11-21] MEDS: BLOOD SUGAR DIAGNOSTIC STRIP TEST SCH (05:22)
[2019-11-21] MEDS: INSULIN LISPRO 100 UNITS/ML SUBCUT SCH ×2 (05:24)
[2019-11-21] MEDS: IPRATROPIUM/ALBUTEROL 0.5-3(2.5)MG/3ML NEB HHN SCH ×5 (07:56→20:32)
[2019-11-21] MEDS: DOXYCYCLINE 100 MG in DEXT 5% WATER 100 ML IV SCH ×2 (08:47→22:06)
[2019-11-21] MEDS: DOXAZOSIN MESYLATE 2MG TABLET PO SCH ×2 (08:47→16:43)
[2019-11-21] MEDS: PANTOPRAZOLE SODIUM 40 MG/VIAL IV SCH ×2 (08:47→22:06)
[2019-11-21] MEDS: ENOXAPARIN 30MG/0.3ML SYR SUBCUT SCH (08:48)
[2019-11-21] MEDS: LANTHANUM CARBONATE 500MG CHEW TABLET PO SCH ×2 (08:49→13:16)
[2019-11-21] MEDS: ISOSORBIDE MONONITRATE 30MG TABLET SR 24HR PO SCH (08:49)
[2019-11-21] MEDS: AMLODIPINE 10MG TABLET PO SCH ×2 (08:50→22:06)
[2019-11-21] MEDS: LACTOBACILLUS GG CAPSULE PO SCH (08:50)
[2019-11-21] MEDS: METOPROLOL TARTRATE 50MG TABLET PO SCH (08:50)
[2019-11-21 09:10] LABS: BASOPHILS % 0.9 % (0.0-2.0); EOSINOPHILS % 7.7 % (0.0-5.0); HEMATOCRIT. 23.8 % (42.0-52.0); HEMOGLOBIN. 8.2 g/dL (14.0-18.0); LYMPHOCYTES % 10.6 % (20.0-50.0); MEAN CORPUSCULAR HEMOGLOBIN 34.2 pg (28.0-32.0); MEAN CORPUSCULAR VOLUME 99.5 fL (80.0-94.0); MEAN PLATELET VOLUME 8.7 fl (7.4-10.4); MONOCYTES % 10.6 % (2.0-8.0); NEUTROPHILS % 70.2 % (40.0-76.0); PLATELET 471 x1000/uL (130-400); RED BLOOD CELL COUNT 2.39 mill/uL (4.7-6.1); RED CELL DISTRIBUTION WIDTH 13.1 % (11.6-14.6)
[2019-11-21] MEDS: CARVEDILOL 12.5MG TABLET PO SCH ×2 (13:15→22:14)
[2019-11-21] MEDS: RISPERIDONE 0.5MG TABLET PO SCH (13:16)
[2019-11-21] MEDS: ISOSORBIDE MONONITRATE 60MG TABLET SR 24HR PO SCH (14:00)
[2019-11-21 16:07] LABS: INR 1.1; PROTHROMBIN TIME 11.6 sec (9.6-11.0)
[2019-11-21] MEDS: CEFEPIME 1,000 MG in DEXTROSE 5% WATER 50 ML IV SCH (16:43)
[2019-11-21] MEDS ORDERED: AMLODIPINE 10MG TABLET PO SCH (21:00)
[2019-11-21] MEDS ORDERED: ISOSORBIDE MONONITRATE 30MG TABLET SR 24HR PO SCH (21:00)
[2019-11-22] VITALS: BP 141/69
[2019-11-22] MEDS: IPRATROPIUM/ALBUTEROL 0.5-3(2.5)MG/3ML NEB HHN SCH ×4 (00:19→21:27)
[2019-11-22 04:00] VITALS: BP 139/71
[2019-11-22] MEDS: HYDRALAZINE HCL 100MG TABLET NG SCH ×3 (06:08→21:32)
[2019-11-22] MEDS: CARVEDILOL 12.5MG TABLET PO SCH ×3 (06:09→21:31)
[2019-11-22 06:41] LABS: BASOPHILS % 1.2 % (0.0-2.0); EOSINOPHILS % 7.3 % (0.0-5.0); HEMATOCRIT. 24.4 % (42.0-52.0); HEMOGLOBIN. 8.5 g/dL (14.0-18.0); LYMPHOCYTES % 13.2 % (20.0-50.0); MEAN CORPUSCULAR HEMOGLOBIN 34.5 pg (28.0-32.0); MEAN PLATELET VOLUME 8.4 fl (7.4-10.4); MONOCYTES % 11.2 % (2.0-8.0); NEUTROPHILS % 67.1 % (40.0-76.0); PLATELET 493 x1000/uL (130-400); RED BLOOD CELL COUNT 2.46 mill/uL (4.7-6.1); RED CELL DISTRIBUTION WIDTH 13.1 % (11.6-14.6)
[2019-11-22] MEDS: LANTHANUM CARBONATE 500MG CHEW TABLET PO SCH ×3 (07:50→18:38)
[2019-11-22 08:00] VITALS: BP 140/68
[2019-11-22] MEDS: PANTOPRAZOLE SODIUM 40 MG/VIAL IV SCH ×2 (09:50→21:31)
[2019-11-22] MEDS: RISPERIDONE 0.5MG TABLET PO SCH (09:51)
[2019-11-22] MEDS: DOXAZOSIN MESYLATE 2MG TABLET PO SCH ×2 (09:51→18:38)
[2019-11-22] MEDS: AMLODIPINE 10MG TABLET PO SCH ×2 (09:52→21:32)
[2019-11-22] MEDS: LACTOBACILLUS GG CAPSULE PO SCH (09:52)
[2019-11-22] MEDS: ISOSORBIDE MONONITRATE 60MG TABLET SR 24HR PO SCH (09:52)
[2019-11-22] MEDS ORDERED: AMLO10TA80 PO (11:02)
[2019-11-22] MEDS ORDERED: COR12 PO (11:02)
[2019-11-22] MEDS ORDERED: HYDR100T26 NG (11:02)
[2019-11-22] MEDS ORDERED: LACT1CAP77 PO (11:02)
[2019-11-22] MEDS ORDERED: DOXA2TAB PO (11:02)
[2019-11-22] MEDS ORDERED: ISOS60TA4 PO (11:02)
[2019-11-22] MEDS ORDERED: RISP05 PO (11:02)
[2019-11-22] MEDS ORDERED: TOPUD PO (11:02)
[2019-11-22] MEDS ORDERED: FOS500 PO (11:02)
[2019-11-22 12:00] VITALS: BP 125/62
[2019-11-22] MEDS ORDERED: CALC667T2 MT (12:26)
[2019-11-22] MEDS: DOXYCYCLINE 100 MG in DEXT 5% WATER 100 ML IV SCH (12:32)
[2019-11-22 16:00] VITALS: BP 145/77
[2019-11-22] MEDS ORDERED: FENTANYL CITRATE/PF 50MCG/ML 2ML VIAL ONE (16:21)
[2019-11-22] MEDS ORDERED: MIDAZOLAM HCL 5 MG/5 ML VIAL ONE (16:21)
[2019-11-22] MEDS ORDERED: MIDAZOLAM HCL 5 MG/5 ML VIAL IV PRN (16:24)
[2019-11-22] MEDS ORDERED: FENTANYL CITRATE/PF 50MCG/ML 2ML VIAL IV PRN (16:25)
[2019-11-22] MEDS ORDERED: DIAZEPAM 5 MG/ML 2ML CPJ IV PRN (16:35)
[2019-11-22] MEDS ORDERED: DIAZEPAM 5 MG/ML 2ML CPJ ONE (16:38)
[2019-11-22] MEDS: CEFEPIME 1,000 MG in DEXTROSE 5% WATER 50 ML IV SCH (18:38)
[2019-11-22 20:40] VITALS: BP 141/66
[2019-11-23 00:32] VITALS: BP 136/53
[2019-11-23] MEDS: IPRATROPIUM/ALBUTEROL 0.5-3(2.5)MG/3ML NEB HHN SCH ×4 (02:58→21:24)
[2019-11-23 04:53] VITALS: BP 151/80
[2019-11-23] MEDS: HYDRALAZINE HCL 100MG TABLET NG SCH ×3 (05:44→22:06)
[2019-11-23] MEDS: CARVEDILOL 12.5MG TABLET PO SCH ×3 (05:44→22:07)
[2019-11-23 07:22] LABS: BASOPHILS % 1.4 % (0.0-2.0); EOSINOPHILS % 5.6 % (0.0-5.0); HEMATOCRIT. 24.5 % (42.0-52.0); HEMOGLOBIN. 8.5 g/dL (14.0-18.0); MEAN CORPUSCULAR VOLUME 97.6 fL (80.0-94.0); MONOCYTES % 11.3 % (2.0-8.0); NEUTROPHILS % 67.7 % (40.0-76.0); PLATELET 522 x1000/uL (130-400); RED BLOOD CELL COUNT 2.51 mill/uL (4.7-6.1); RED CELL DISTRIBUTION WIDTH 13.3 % (11.6-14.6)
[2019-11-23 08:00] VITALS: BP 141/68
[2019-11-23] MEDS: ENOXAPARIN 30MG/0.3ML SYR SUBCUT SCH (08:48)
[2019-11-23] MEDS: LACTOBACILLUS GG CAPSULE PO SCH (08:49)
[2019-11-23] MEDS: PANTOPRAZOLE SODIUM 40 MG/VIAL IV SCH ×2 (08:49→22:07)
[2019-11-23] MEDS: LANTHANUM CARBONATE 500MG CHEW TABLET PO SCH ×3 (08:50→17:45)
[2019-11-23] MEDS: RISPERIDONE 0.5MG TABLET PO SCH (08:54)
[2019-11-23] MEDS: AMLODIPINE 10MG TABLET PO SCH ×2 (09:00→22:06)
[2019-11-23] MEDS: DOXAZOSIN MESYLATE 2MG TABLET PO SCH ×2 (09:00→16:00)
[2019-11-23] MEDS: ISOSORBIDE MONONITRATE 60MG TABLET SR 24HR PO SCH (10:44)
[2019-11-23 12:00] VITALS: BP 127/63
[2019-11-23 16:00] VITALS: BP 137/74
[2019-11-23] MEDS: CEFEPIME 1,000 MG in DEXTROSE 5% WATER 50 ML IV SCH (16:00)
[2019-11-23 20:00] VITALS: BP 139/72
[2019-11-23] MEDS ORDERED: ZOLPIDEM TARTRATE 5MG TABLET PO PRN (21:15)
[2019-11-24] VITALS: BP 142/68
[2019-11-24] MEDS: IPRATROPIUM/ALBUTEROL 0.5-3(2.5)MG/3ML NEB HHN SCH ×4 (02:27→19:52)
[2019-11-24 04:00] VITALS: BP 148/74
[2019-11-24] MEDS: CARVEDILOL 12.5MG TABLET PO SCH ×3 (06:14→21:07)
[2019-11-24] MEDS: HYDRALAZINE HCL 100MG TABLET NG SCH ×3 (06:14→21:07)
[2019-11-24 08:00] VITALS: BP 148/75
[2019-11-24] MEDS: LANTHANUM CARBONATE 500MG CHEW TABLET PO SCH ×3 (09:55→17:20)
[2019-11-24] MEDS: ENOXAPARIN 30MG/0.3ML SYR SUBCUT SCH (09:56)
[2019-11-24] MEDS: PANTOPRAZOLE SODIUM 40 MG/VIAL IV SCH ×2 (09:56→20:26)
[2019-11-24] MEDS: ISOSORBIDE MONONITRATE 60MG TABLET SR 24HR PO SCH (09:56)
[2019-11-24] MEDS: LACTOBACILLUS GG CAPSULE PO SCH (09:57)
[2019-11-24] MEDS: DOXAZOSIN MESYLATE 2MG TABLET PO SCH ×2 (09:57→17:20)
[2019-11-24] MEDS: AMLODIPINE 10MG TABLET PO SCH ×2 (09:57→20:26)
[2019-11-24] MEDS: RISPERIDONE 0.5MG TABLET PO SCH (09:57)
[2019-11-24 12:00] VITALS: BP 137/83
[2019-11-24 16:00] VITALS: BP 138/72
[2019-11-24 18:18] LABS: CHLORIDE 102 mEq/L (98-107)
[2019-11-24] MEDS ORDERED: LORAZEPAM 2MG/ML CPJ IV PRN (19:13)
[2019-11-24 20:00] VITALS: BP 159/86
[2019-11-25] VITALS: BP 136/79
[2019-11-25] MEDS: IPRATROPIUM/ALBUTEROL 0.5-3(2.5)MG/3ML NEB HHN SCH ×4 (01:16→19:50)
[2019-11-25 04:00] VITALS: BP 146/89
[2019-11-25] MEDS: CARVEDILOL 12.5MG TABLET PO SCH ×3 (05:26→22:00)
[2019-11-25] MEDS: HYDRALAZINE HCL 100MG TABLET NG SCH ×3 (05:26→22:00)
[2019-11-25 06:54] LABS: BASOPHILS % 2.3 % (0.0-2.0); HEMATOCRIT. 24.8 % (42.0-52.0); HEMOGLOBIN. 8.5 g/dL (14.0-18.0); MEAN CORPUSCULAR HEMOGLOBIN 33.8 pg (28.0-32.0); MEAN CORPUSCULAR VOLUME 98.6 fL (80.0-94.0); MEAN PLATELET VOLUME 7.6 fl (7.4-10.4); NEUTROPHILS % 64.7 % (40.0-76.0); PLATELET 432 x1000/uL (130-400); RED BLOOD CELL COUNT 2.52 mill/uL (4.7-6.1); RED CELL DISTRIBUTION WIDTH 13.2 % (11.6-14.6)
[2019-11-25 08:32] VITALS: BP 145/79
[2019-11-25] MEDS: LACTOBACILLUS GG CAPSULE PO SCH (09:13)
[2019-11-25] MEDS: LANTHANUM CARBONATE 500MG CHEW TABLET PO SCH ×3 (09:13→18:54)
[2019-11-25] MEDS: DOXAZOSIN MESYLATE 2MG TABLET PO SCH ×2 (09:14→17:58)
[2019-11-25] MEDS: AMLODIPINE 10MG TABLET PO SCH ×2 (09:14→20:05)
[2019-11-25] MEDS: ISOSORBIDE MONONITRATE 60MG TABLET SR 24HR PO SCH (09:15)
[2019-11-25] MEDS: PANTOPRAZOLE SODIUM 40 MG/VIAL IV SCH ×2 (09:15→20:04)
[2019-11-25] MEDS: RISPERIDONE 0.5MG TABLET PO SCH (09:15)
[2019-11-25] MEDS: ENOXAPARIN 30MG/0.3ML SYR SUBCUT SCH (09:16)
[2019-11-25 12:22] VITALS: BP 115/61
[2019-11-25 15:58] VITALS: BP 116/61
[2019-11-25 20:00] VITALS: BP 136/60
[2019-11-26] VITALS: BP 142/77
[2019-11-26 04:00] VITALS: BP 117/66
[2019-11-26] MEDS: HYDRALAZINE HCL 100MG TABLET NG SCH ×2 (05:31→13:51)
[2019-11-26] MEDS: CARVEDILOL 12.5MG TABLET PO SCH ×2 (05:32→13:50)
[2019-11-26 07:44] LABS: BASOPHILS % 2.6 % (0.0-2.0); EOSINOPHILS % 9.1 % (0.0-5.0); HEMATOCRIT. 28.5 % (42.0-52.0); HEMOGLOBIN. 9.6 g/dL (14.0-18.0); LYMPHOCYTES % 15.1 % (20.0-50.0); MEAN CORPUSCULAR HEMOGLOBIN 33.3 pg (28.0-32.0); MEAN PLATELET VOLUME 8.2 fl (7.4-10.4); MONOCYTES % 8.8 % (2.0-8.0); NEUTROPHILS % 64.4 % (40.0-76.0); PLATELET 484 x1000/uL (130-400); RED BLOOD CELL COUNT 2.88 mill/uL (4.7-6.1); RED CELL DISTRIBUTION WIDTH 13.5 % (11.6-14.6)
[2019-11-26 08:00] VITALS: BP 137/73
[2019-11-26] MEDS: IPRATROPIUM/ALBUTEROL 0.5-3(2.5)MG/3ML NEB HHN SCH ×2 (08:27→12:18)
[2019-11-26] MEDS: ENOXAPARIN 30MG/0.3ML SYR SUBCUT SCH (09:14)
[2019-11-26] MEDS: PANTOPRAZOLE SODIUM 40 MG/VIAL IV SCH (09:14)
[2019-11-26] MEDS: LANTHANUM CARBONATE 500MG CHEW TABLET PO SCH ×2 (09:15→13:49)
[2019-11-26] MEDS: ISOSORBIDE MONONITRATE 60MG TABLET SR 24HR PO SCH (09:15)
[2019-11-26] MEDS: LACTOBACILLUS GG CAPSULE PO SCH (09:16)
[2019-11-26] MEDS: DOXAZOSIN MESYLATE 2MG TABLET PO SCH (09:16)
[2019-11-26] MEDS: RISPERIDONE 0.5MG TABLET PO SCH (09:16)
[2019-11-26] MEDS: AMLODIPINE 10MG TABLET PO SCH (09:16)
[2019-11-26 12:00] VITALS: BP 130/70
[2019-11-26 16:00] VITALS: BP 114/60
[2019-11-26 17:30] VITALS: BP 114/60
== END 2019-11-26 18:17 | disposition home or self-care (01) | DRG 720 ==
LOC: ER 11:36 → EDBEDREQSVC 13:27 → EDBEDREQTM 13:27 → EDBEDREQ 13:27 → MICUSO 14:25 → EDBEDREQ 14:29 → EDBEDREQTM 14:29 → 5EST 11-12 12:15 → 6WST 11-21 23:40
PROVIDERS: ADMIT Internal Medicine; ATTEND Internal Medicine
PROC: 5A1955Z Respiratory Ventilation, Greater than 96 Consecutive Hours (ICD-10-PCS; principal; 2019-11-11)
PROC: 0BH17EZ Insertion of Endotracheal Airway into Trachea, Via Natural or Artificial Opening (ICD-10-PCS; 2019-11-11)
PROC: 05HY33Z Insertion of Infusion Device into Upper Vein, Percutaneous Approach (ICD-10-PCS; 2019-11-11)
PROC: B54MZZA Ultrasonography of Right Upper Extremity Veins, Guidance (ICD-10-PCS; 2019-11-11)
PROC: 5A09357 Assistance with Respiratory Ventilation, Less than 24 Consecutive Hours, Continuous Positive Airway Pressure (ICD-10-PCS; 2019-11-11)
PROC: 5A1D70Z Performance of Urinary Filtration, Intermittent, Less than 6 Hours Per Day (ICD-10-PCS; 2019-11-12)
PROC: 5A1D70Z Performance of Urinary Filtration, Intermittent, Less than 6 Hours Per Day (ICD-10-PCS; 2019-11-13)
PROC: 5A1D70Z Performance of Urinary Filtration, Intermittent, Less than 6 Hours Per Day (ICD-10-PCS; 2019-11-15)
PROC: 5A1D70Z Performance of Urinary Filtration, Intermittent, Less than 6 Hours Per Day (ICD-10-PCS; 2019-11-17)
PROC: 5A1D70Z Performance of Urinary Filtration, Intermittent, Less than 6 Hours Per Day (ICD-10-PCS; 2019-11-19)
PROC: 5A1D70Z Performance of Urinary Filtration, Intermittent, Less than 6 Hours Per Day (ICD-10-PCS; 2019-11-21)
PROC: 4A10X4Z Monitoring of Central Nervous Electrical Activity, External Approach (ICD-10-PCS; 2019-11-21)
PROC: 0DB68ZX Excision of Stomach, Via Natural or Artificial Opening Endoscopic, Diagnostic (ICD-10-PCS; 2019-11-22)
PROC: 5A1D70Z Performance of Urinary Filtration, Intermittent, Less than 6 Hours Per Day (ICD-10-PCS; 2019-11-23)
PROC: 5A1D70Z Performance of Urinary Filtration, Intermittent, Less than 6 Hours Per Day (ICD-10-PCS; 2019-11-25)
DX: A41.9 Sepsis, unspecified organism (principal); J96.01 Acute respiratory failure with hypoxia; J18.9 Pneumonia, unspecified organism; E44.0 Moderate protein-calorie malnutrition; E87.1 Hypo-osmolality and hyponatremia; D62 Acute posthemorrhagic anemia; N18.6 End stage renal disease; E87.8 Other disorders of electrolyte and fluid balance, not elsewhere classified; I21.A1 Myocardial infarction type 2; D72.810 Lymphocytopenia; E83.39 Other disorders of phosphorus metabolism; E87.4 Mixed disorder of acid-base balance; E87.5 Hyperkalemia; I25.10 Atherosclerotic heart disease of native coronary artery without angina pectoris; G92 Toxic encephalopathy; I31.3 Pericardial effusion (noninflammatory); I13.11 Hypertensive heart and chronic kidney disease without heart failure, with stage 5 chronic kidney disease, or end stage renal disease; J96.02 Acute respiratory failure with hypercapnia; D53.9 Nutritional anemia, unspecified; K29.61 Other gastritis with bleeding; D63.1 Anemia in chronic kidney disease; K44.9 Diaphragmatic hernia without obstruction or gangrene; K76.0 Fatty (change of) liver, not elsewhere classified; N25.0 Renal osteodystrophy; I16.9 Hypertensive crisis, unspecified; D47.3 Essential (hemorrhagic) thrombocythemia; R73.9 Hyperglycemia, unspecified; Z78.1 Physical restraint status; I25.2 Old myocardial infarction; Z99.2 Dependence on renal dialysis; Z91.19 Patient's noncompliance with other medical treatment and regimen; Z68.22 Body mass index [BMI] 22.0-22.9, adult; Z03.818 Encounter for observation for suspected exposure to other biological agents ruled out; Z91.15 Patient's noncompliance with renal dialysis
CPT/HCPCS: 36415; 36600; 71045; 71250; 76700; 76937; 80048; 80051; 80053; 80202; 82140; 82270; 82375; 82607; 82728; 82746; 82805; 82962; 83036; 83540; 83550; 83605; 83735; 83880; 84100; 84132; 84145; 84484; 85025; 85027; 85044; 86705; 86709; 86803; 87070; 87340; 88305; 92610; 93005; 93306; 94002; 94003; 94640; 94660; 95816; 96365; 97116; 97162; 97166; 97530; 97535; 99291; C1725; C9113; J0456; J0610; J0692; J0696; J1100; J1650; J1815; J2060; J2250; J2270; J2405; J2543; J2704; J3010; J3370; J3490; J7050; J7060; J8540; U0003-CS